=== PATIENT | male | born 1950 | race Caucasian/White ===

== ENCOUNTER 2023-05-17 07:54 | Outpatient (CLI) | payer MEDICARE, SELFPAY | END 2023-05-17 07:55 | disposition home or self-care (01) | LOC: NFLDREF 05-20 09:34 | PROVIDERS: Visit Provider Internal Medicine | DX: E78.5 Hyperlipidemia, unspecified (principal); I10 Essential (primary) hypertension; Z12.5 Encounter for screening for malignant neoplasm of prostate | CPT/HCPCS: 80053; 80061; 84153 ==

== ENCOUNTER 2023-11-24 09:41 | Outpatient (CLI) | payer MEDICARE, SELFPAY | END 2023-11-24 09:42 | disposition home or self-care (01) | LOC: LKVREF 09:44 | PROVIDERS: PCP Internal Medicine; Visit Provider Nurse Practitioner Family | DX: R06.02 Shortness of breath (principal) | CPT/HCPCS: 83880 ==

== ENCOUNTER 2023-12-03 10:13 | Outpatient (CLI) | payer MEDICARE, SELFPAY | END 2023-12-03 10:14 | disposition home or self-care (01) | LOC: NFLDREF 10:14 | PROVIDERS: PCP Internal Medicine; Visit Provider Internal Medicine | DX: R05.2 Subacute cough (principal) | CPT/HCPCS: 80053 ==

== ENCOUNTER 2024-05-18 08:12 | Outpatient (CLI) | payer MEDICARE, SELFPAY ==
--- OUTSIDE RECORDS SUMMARY | 2024-05-22 00:28 | XMS_ITS | Clinical Summary ---
Author Organization [facility] Address [address] [place] [address] Care Team Providers Care Habilitation Worker Name Role Phone Dandre Lunsford MD Primary Care Provider [phone] Source Comments You are receiving this document as you are listed as the primary care provider,follow-up provider, or the patient has been referred to you for consultation.This is in compliance with the Medicare and[facility] EHR Incentive [facility],which states Providers who transition their patient to another setting of careor provider of care or refers their patient to another provider of care shouldprovide summary care record for each transition of care or referral. [facility] Allergies No known active allergies Medications Medication Sig Dispensed Refills Start Date End Date Status cholecalciferol (VITAMIND3) 1000 UNITS capsule Take 2 Capsules (2,000 Units) by mouth daily. 05/05/2014 Active ondansetron (ZOFRAN-ODT) 4 MG disintegrating tablet Take 1 Tablet (4 mg) by mouth every 8 hours as needed for Nausea. 20 Tablet 12/08/2021 Active amLODIPine (NORVASC) 10 MG tabletIndications:Esse ntial hypertension (HRC) Take 1 Tablet (10 mg) by mouth daily. 90 Tablet 3 05/16/2022 Active atorvastatin (LIPITOR) 10 MG tabletIndications:Hype rlipidemia, unspecified hyperlipidemia type (HRC) Take 1 Tablet (10 mg) by mouth daily. 90 Tablet 3 05/16/2022 Active omeprazole (PRILOSEC) 20 MG capsuleIndications:Gas troesophageal reflux disease, unspecified whether esophagitis present Take 1 Capsule (20 mg) by mouth daily. 90 Capsule 3 05/16/2022 Active Active Problems Problem Noted Date Diagnosed Date Essential hypertension 01/27/2021 Hyperlipidemia 01/27/2021 Screening for condition 03/09/2008 Overview (05/15/2017): LW Modifier: Repeat colonoscopy in 2016 ; Screening Condition NOS Hemorrhage of gastrointestinal tract 09/11/2006 Overview (05/15/2017): LW Modifier: Peptic Ulcer Disease, Fall 2005 ; Gastrointestinal Hemorrhage Immunizations Name Administration Dates Next Due Flu Vac (3+ yrs) 07/06/2010 Flu Vac Preserv Free (3+yrs) 08/03/2010,06/23/20,07/27/2006 Influenza IIV3 (Trivalent) F luzone Highdose, 65+ Yrs (69750) 06/16/2020,06/11/2019,06/04/2018, 017 Influenza IIV4 (Quadrivalent ) 0.5mL (87205) 07/06/2015,06/16/2014,06/08/2013 Influenza IIV4 (Quadrivalent ) Fluzone, 65+ Yrs 06/16/2021 Moderna Monovalent 12+ 10/05/2021,12/21/2020,11/2020 PCV13 (Prevnar) 10/29/2016 PPSV23 (Pneumovax) 10/30/2017 TDAP (ADACEL) 03/31/2010 Td 03/18/2001 Tdap 05/09/2020 Zoster (Zostavax) 03/18/2013 Family History Medical History Relation Name Comments High Blood Pressure Father Arthritis Mother Early Mother gi bleed ? age 45 High Blood Pressure Brother 1 High Blood Pressure Brother 2 Early Brother 3 mva age 18 Diabetes Paternal Uncle Arthritis Sister 1 Cancer Sister 2 uterine ca Diabetes Son Amblyopia/Strabismus Negative Family History Blindness Negative Family History Cataract Negative Family History Glaucoma Negative Family History Macular Degeneration Negative Family History Retinal Detachment Negative Family History Relation Name Status Comments Father Alive Mother Brother 1 Alive Brother 2 Alive Brother 3 Brother 4 Alive Brother 5 Alive Paternal Uncle Sister 1 Alive Sister 2 Alive Son Social History Tobacco Use Types Packs/Day Years Used Date Smoking Tobacco: Never Smokeless Tobacco: Never Alcohol Use Standard Drinks/Week Comments Yes 4 (1 standard drink = 0.6 oz pure alcohol) Alcoholic Drinks/day: Amount:1-2 drinks; Freq:2-4/Month ; PHQ-2 Answer Date Recorded PHQ-2 Score 0 05/16/2022 Sex and Gender Information Value Date Recorded Sex Assigned at Not on file Gender Identity Not on file Sexual Orientation Not on file Last Filed Vital Signs Vital Sign Reading Time Taken Comments Blood Pressure 150/65 10/23/2022 9:44 AM [employer] Pulse 80 10/23/2022 9:44 AM [employer] Temperature 36.8 ??C (98.2 ??F) 12/08/2021 10:54 AM C DT Respiratory Rate 16 12/08/2021 10:54 AM CDT Oxygen Saturation 98% 12/08/2021 10:54 AM CDT Inhaled Oxygen Concentration - - Weight 72.6 kg (160 lb) 10/23/2022 9:44 AM [employer] Height 172.7 cm (5' 8) 10/23/2022 9:44 AM [employer] Body Mass Index 24.33 10/23/2022 9:44 AM [employer] Plan of Treatment Health Maintenance Due Date Last Done Comments MTM Covered 1950 Zoster/Shingles (2 of 3) 05/13/2013 03/18/2013 Medicare Annual Wellness Visit 05/16/2023 05/16/2022, 05/10/2021, 05/09/2020, Additional history exists Prediabetes: HGBA1C 05/16/2023 05/16/2022, 05/11/2021, 05/09/2020, Additional history exists COVID-19 Vaccine ( season) 2023 07/09/2022, 10/05/2021, 12/21/2020, Additional history exists Influenza (#1) 2024 07/02/2022, 05/25, 06/16/2020, Additional history exists Colonoscopy 04/16/2027 04/16/2017 (Completed) Cholesterol 05/16/2027 05/16/2022, 04/23, 05/09/2020, Additional history exists DTaP/Tdap/Td (3 - Tdap) 05/09/2030 05/09/20 20, 03/31/2010, 03/18/2001 Hep C Screening (Preventive Services) Completed 05/15/2017 Pneumococcal 65+ Yrs Completed 10/30/2017, 10/29/19 17 HepA Aged Out No longer eligi ble based on patient's age to complete this topic HepB Aged Out No longer eligi ble based on patient's age to complete this topic Hib Aged Out No longer eligi ble based on patient's age to complete this topic IPV (Polio) Aged Out No longer eligi ble based on patient's age to complete this topic MCV4 Aged Out No longer eligi ble based on patient's age to complete this topic Procedures Procedure Name Priority Date/Time Associated Diagnosis Comments HGB A1C Routine 05/16/2022 10:21 AM CDT Encounter for Medicare annual wellness exam IFG (impaired fasting glucose) LIPID PANEL & DIRECT LDL (IF NEEDED) Routine 05/16/2022 10:21 AM CDT Hyperlipidemia, unspecified hyperlipidemia type Encounter for Medicare annual wellness exam HEPATITIS C ANTIBODY, WITH REFLEX Routine 05/15/2017 10:20 AM CDT Annual physical exam from Last 3 Months or Most Recently Relevant to Health Maintenance Results * Lipid Panel and Direct LDL(If Needed) (05/16/2022 10:21 AM CDT) Cholesterol 158 0 - 199 mg/dL 05/16/2022 3:45 PM T [facility] Triglyceride 94 <=149 mg/dL 05/16/2022 3:45 PM T [facility] HDL Cholesterol 54 >=40 mg/dL 05/16/2022 3:45 PM [facility] LDL, Calculated 85 <130 mg/dL 05/16/2022 3:45 PM [facility] Non HDL Chol, Calculated 104 <=159 mg/dL 05/16/2022 3:45 PM [facility] Cholesterol/HDL Ratio 2.9 05/16/2022 3:45 PM [facility] Hours Fasting Unknown 05/16/2022 3:45 PM CDT [facility] Blood Venipuncture / Unknown 05/16/2022 10:21 AM CDT 05/16/2022 10:21 AM CDT Dandre Lunsford MD LAB_1 Performing Organization Address [facility] de Phone Number [facility] [address] [id number], [facility] [phone] * (ABNORMAL) Hgb A1C (05/16/2022 10:21 AM CDT) Pathologist [facility] Hemoglobin A1C (Rapid) 5.7(H) <=5.6 % 05/16/2022 11:13 AM CDT [facility] Blood Venipuncture / Unknown 05/16/2022 10:21 AM CDT 05/16/2022 10:21 AM CDT Narrative [facility] - 05/16/2022 11:13 AM CDT For patients not previously diagnosed with diabetes: 5.7-6.4%: Increased risk for diabetes 6.5% and greater: Diagnostic for diabetes For patients diagnosed with diabetes: <8.0%: Goal of therapy for ages 18-75 Clinicians may recommend a higher or lower goal for specific individuals. This Hemoglobin A1c assay has significant interference with elevated Hemoglobin (HbF) and other Hemoglobin variants. In patients with results that do not correlate clinically, contact the laboratory for further direction. Dandre Lunsford MD LAB_1 Performing Organization Address [facility] de Phone Number [facility] [address] [place] [address], [facility] [phone] * Hepatitis C Antibody, with Reflex (05/15/2017 10:20 AM CDT) [facility] Hepatitis C Antibody Nonreactive Nonreactive PN SOFT 05/15/2017 10:2 0 AM CDT 05/15/2017 1:49 PM CDT Narrative PN SOFT - 05/15/2017 2:36 PM CDT Performed at [address], [place] [address] CLIA number [id number] Dandre Lunsford MD LAB_1 PN SOFT [address] [place] [address] from Last 3 Months or Most Recently Relevant to Health Maintenance Advance Directives Documents on File Type Date Recorded Patient [employer] Worker Expl anation Advance Directive/Living Will/Durable Power of Attny on file/POLST PN 05/07/2013 1:11 PM Care Teams Habilitation Worker Relationship Specialty [place] [address] [place] [address] PCP - General 12/24/10
--- OUTSIDE RECORDS SUMMARY | 2024-05-22 00:28 | XMS_ITS | Clinical Summary ---
Author Organization [employer] [facility] Address [place], [place] [address] Care Team Providers Care Horticultural Specialty Grower Name Role Phone [facility] Primary Care Provider + Allergies No known active allergies Immunizations Name Administration Dates Next Due COVID-19 vaccine (Moderna 100mcg/0.5mL) PF, MDV 12/21/2020,11/23/2020 COVID-19 vaccine (Moderna 50 mcg/0.5mL) 12YO+ BIVALENT PF, MDV 07/09/2022 COVID-19 vaccine (Moderna Best nel 50mcg/0.25mL) PF, MDV 10/05/2021 Influenza, High-dose Inactivated 06/16/2020 Influenza, High-dose Quadrivalent Inactivated Influenza, Inactivated AIIV4 (Age 65+ Years) Preserv Free 07/02/2022 Pneumococcal Poly,23-Valent (Pneumovax) 10/30/19 18 Pneumococcal conj 13-Valent (Prevnar 13) 017 Td (Age >=7 Years) 03/18/2001 Tdap 05/09/2020,03/31/2010 Zoster (Zostavax-ZVL, live) 03/18/2013 Social History Tobacco Use Types Packs/Day Years Used Date Smoking Tobacco: Never Assessed Social Connections Answer Date Recorded Frequency of Communication with Friends and Fami ly Not on file 08/07/2023 Sex and Gender Information Value Date Recorded Sex Assigned at Not on file Gender Identity Not on file Sexual Orientation Not on file Plan of Treatment Health Maintenance Due Date Last Done Comments Depression screening for age 12+ 1963 BMI (ht and wt on same day) for age 18+ 1969 Hepatitis C screening for ag e 18-79 1969 Colonoscopy through age 75 1996 Lipids for age 45-75 1996 Zoster (shingles) series for age 50+ (2 of 3) 05/13/2013 03/18/2013 Medicare Wellness for age 65+ 2016 COVID-19 vaccine series (2022- season) 2023 07/09/2022, 10/05/2021, 12/21/2020, Additional history exists Influenza for age 65+ 05/24/2024 07/02/2022 , 06/16/2021, 06/16/2020 Tetanus booster 05/09/2030 05/09/2020, 05/2010, 03/18/2001 Pneumococcal series for age 65+ Completed 8, 10/29/2016 Tdap Completed 05/09/2020, 03/31/2010 Care Teams Horticultural Specialty Grower Relationship Specialty Start Date End Date [facility] [place] [address] PCP - General 06/22/22
== END 2024-05-18 08:13 | disposition home or self-care (01) ==
LOC: NFLDREF 05-22 00:26
PROVIDERS: PCP Internal Medicine; Referring Provider Internal Medicine; Visit Provider Internal Medicine
DX: E78.5 Hyperlipidemia, unspecified (principal); I10 Essential (primary) hypertension; Z12.5 Encounter for screening for malignant neoplasm of prostate
CPT/HCPCS: 80053; 80061; G0103

== ENCOUNTER 2025-05-18 08:08 | Outpatient (CLI) | payer MEDICARE, SELFPAY | END 2025-05-18 08:09 | disposition home or self-care (01) | LOC: NFLDREF 05-20 14:23 | PROVIDERS: PCP Internal Medicine; Referring Provider Internal Medicine; Visit Provider Internal Medicine | DX: E78.5 Hyperlipidemia, unspecified (principal); I10 Essential (primary) hypertension; Z12.5 Encounter for screening for malignant neoplasm of prostate | CPT/HCPCS: 80053; 80061; G0103 ==